=== PATIENT | male | born 1945 | race Caucasian/White ===

== ENCOUNTER 2016-12-04 11:24 | Emergency (ER) | payer MEDICARE ==
[2016-12-04] MEDS ORDERED: HYDROcodone/ACETAMIN 5-325 MG* 1 TAB PO ONE (11:37)
[2016-12-04] MEDS ORDERED: Cyclobenzaprine TAB* 10 MG PO ONE (11:37)
--- NOTE | 2016-12-04 12:27 | RAD ---
INDICATION: Low back pain. COMPARISON: Comparison is made with a prior MRI of the lumbar spine from May 02, 2016. TECHNIQUE: Contiguous axial sections were obtained beginning above the T11 vertebra and continuing through the L5-S1 disc space. Images were reconstructed in the sagittal and coronal planes. FINDINGS: The vertebra are in normal alignment. No fracture is seen. There are hypodense lesions present within the T12 and L1 vertebra which appear to correlate with hemangiomas on the prior MRI study. At the L1-L2 level there is a mild broad-based disc bulge. No significant spinal canal or neural foraminal narrowing is seen. At the L2-L3 level there is a moderate broad-based disc bulge and moderate to severe hypertrophic changes within the facet joints which gives rise to moderate to severe spinal canal narrowing and moderate bilateral neural foraminal narrowing. At the L3-L4 level there is a moderate broad-based disc bulge and severe hypertrophic changes within the facet joints which gives rise to severe spinal canal narrowing. There is moderate neural foraminal narrowing on the right side and severe neural foraminal narrowing on the left side. At the L4-L5 level there is a moderate broad-based disc bulge and severe hypertrophic changes within the facet joints which give rise to severe spinal canal narrowing. There is moderate to severe bilateral neural foraminal narrowing. The L5-S1 level there is a moderate broad-based disc bulge and severe hypertrophic changes within the facet joints. This causes lateral recess narrowing on both sides and moderate bilateral neural foraminal narrowing. IMPRESSION: MODERATE TO SEVERE DEGENERATIVE DISC DISEASE AND FACET OSTEOARTHRITIS DESCRIBED. IF THE PATIENT'S SYMPTOMS PERSIST RECOMMEND FOLLOW-UP MR IMAGING.
--- NOTE | 2016-12-04 12:41 | ED ---
Back Pain - HPI Summary HPI Summary: Patient presents to the ED with low back pain x 5 days which has progressively worsened and now with pain down to the right leg. He has had back problems in the past, but he states this is the worst it has been. Denies trauma or known injury. He is otherwise healthy. Last MRI 6 months ago which showed degenerative disc disease, but no acute findings. At that time, his back pain improved, but has now returned. He has tried to take old hydrocodone's and tylenol with codeine at home without relief of symptoms. Pain is worse with sitting and better with position, although only decreases from a 9/10 to a 8/ 10. Pain is located over the bilateral lower back with worsening symptoms on the right low back and radiating down the leg causing numbness and tingling. Denies bladder or bowel dysfunction. No history of herniations or fractures. He feels he is unable to ambulate well, and feels best with lying down and positioning. He has tried medications (above) and ice for comfort. On arrival to the ED, he is immediately requesting pain management. Physical exam is very limited d/t his pain. - History of Current Complaint Chief Complaint: EDBackInjuryPain Stated Complaint: RT FLANK AND LEG PAIN Time Seen by Provider: 12/04/16 11:35 Hx Obtained From: Patient Onset/Duration: Gradual Onset Onset/Duration: Started Days Ago Timing: Constant Back Pain Location: Is Discrete @ - lower back radiating to the right leg Severity Initially: Moderate Severity Currently: Moderate Pain Intensity: 8 Pain Scale Used: 0-10 Numeric Character: Aching Aggravating Symptom(s): Movement, Lifting, Bending, Walking Alleviating Symptom(s): Position Associated Signs And Symptoms: Positive: Pain with Weight Bearing - Risk Factors AAA Risk Factors: Negative TAD Risk Factors: Negative Cauda Equina Risk Factors: Lower Extemity Numbness Epidural Abscess Risk Factors: Lower Extemity Numbness - Allergies/Home Medications Allergies/Adverse Reactions: Allergies Allergy/AdvReac Type Severity Reaction Status Date / Time No Known Allergies Allergy Verified 04/07/16 09:36 PMH/Surg Hx/FS Hx/Imm Hx Previously Healthy: Yes Endocrine/Hematology History: Denies: Hx Diabetes Cardiovascular History: Denies: Hx Hypertension, Hx Pacemaker/ICD Respiratory History: Denies: Hx Asthma History: Denies: Hx Renal Disease Sensory History: Denies: Hx Hearing Aid Psychiatric History: Denies: Hx Panic Disorder - Cancer History Cancer Type, 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 - Surgical History Surgery Procedure, Year, and Place: AGE 17 RT KNEE CARTILAGE REPAIR; HERNIA ; VERICOSE VEINS, TONSILECTOMY - Immunization History Hx Pertussis Vaccination: No Immunizations Up to Date: Unable to Obtain/Confirm Infectious Disease History: No Infectious Disease History: Denies: Traveled Outside the [place] in Last 30 Days - Family History Known Family History: Positive: None - Social History Occupation: Employed Full-time Lives: With Family Alcohol Use: Daily Alcohol Amount: 2 glasses of wine daily Hx Substance Use: No Substance Use Type: Reports: None Hx Tobacco Use: No Smoking Status (MU): Never Smoked Tobacco Review of Systems Constitutional: Negative Eyes: Negative Cardiovascular: Negative Respiratory: Negative Gastrointestinal: Negative Positive: no symptoms reported, see HPI Positive: Arthralgia - low back pain, Myalgia Skin: Negative Neurological: Negative All Other Systems Reviewed And Are Negative: Yes Physical Exam Triage Information Reviewed: Yes Vital Signs On Initial Exam: Initial Vitals Temp Pulse Resp BP Pulse Ox 98.3 F 85 22 138/75 98 12/04/16 11:27 12/04/16 11:27 12/04/16 11:27 12/04/16 11:27 12/04/16 11:27 Completion Of Physical Exam Limited Due To: Dementia Appearance: Positive: Well-Appearing, Well-Nourished Skin: Positive: Warm, Skin Color Reflects Adequate Perfusion Head/Face: Positive: Normal Head/Face Inspection Eyes: Positive: EOMI, JOSE Neck: Positive: Supple, No Lymphadenopathy Respiratory/Lung Sounds: Positive: Clear to Auscultation, Breath Sounds Present Cardiovascular: Positive: Normal, RRR, Pulses are Symmetrical in both Upper and Lower Extremities Musculoskeletal: Positive: Pain @ - low back Neurological: Positive: Speech Normal Psychiatric: Positive: Normal - [place] Coma Scale Coma Scale Total: 14 Diagnostics - Vital Signs Vital Signs Temp Pulse Resp BP Pulse Ox 12/04/16 12:01 98.3 F 85 22 138/75 98 12/04/16 11:27 98.3 F 85 22 138/75 98 - Laboratory Lab Statement: Any lab studies that have been ordered have been reviewed, and results considered in the medical decision making process. Back Pain Course/Dx - Course Course Of Treatment: On arrival to the ED, he is immediately requesting pain management. Physical exam is very limited d/t his pain. He has tried to take old hydrocodone's and tylenol with codeine at home without relief of symptoms. Pain is worse with sitting and better with position, although only decreases from a 9/10 to a 8/10. Denies bladder or bowel dysfunction. No history of herniations or fractures. CT lumbar taken d/t patients pain and inability to walk. IMPRESSION: MODERATE TO SEVERE DEGENERATIVE DISC DISEASE AND FACET OSTEOARTHRITIS . DESCRIBED. IF THE PATIENT'S SYMPTOMS PERSIST RECOMMEND FOLLOW-UP MR IMAGING. Thorough physical exam was performed, focusing on thoracic and lumbar special tests and ROM. Due to patient pain around injury, physical exam was limited. Limited ROM. Flip Test positive. Straight leg raise positive. Kernig test positive. Negative Babinksi. Hip flexion and extension, knee extension, dorsiflexion, great toe extension and plantar flexion intact. Rotating at hips limited d/t pain. Nerve roots L4-S2 reflexes intact. L1-S2 nerve root sensory intact. No saddle anesthesia. Gait abnormal. Treatment options explained. Discussed the CT findings. Patient is requesting pain medications. Provider encouraged conservative measures including ibuprofen 600mg three times daily, moist heat, positioning, excercises and flexeril twice daily. He is again requesting pain medication, and states he has tylenol with codeine at home without effect. I have agree to give the patient oxycodone/acetaminophen 10mg only up to four times daily for breakthrough pain not well controlled with ibuprofen and flexeril. Medications were reveiwed with patient and how to take. He is to not take any medications for pain at home during this time. 3 days worth of pain medicaiton given and he agrees to follow up with Dr. Buchanan and Dr. Isabel next week if he needs further management of his pain. Discussed degenerative disc disease, herniations and piriformis syndrome to patient as possibilities for his acute increase in pain. - Diagnoses Differential Diagnosis/HQI/PQRI: Positive: Compressive Cord Syndrome, Herniated Disc, Strain, Sprain Provider Diagnoses: Lumbar radicular pain - Provider Notifications Instructed by Provider To: Have Pt Call For Appt. - Dr. Buchanan and Dr. Isabel Discharge - Discharge Plan Condition: Stable Disposition: HOME Prescriptions: Cyclobenzaprine TAB* [Flexeril TAB*] 10 mg PO BID PRN #10 tab MDD 2 PRN Reason: Pain oxyCODONE/Acetamin 10/325(NF) [Percocet 10/325 (NF)] 1 tab PO Q6H #12 tab MDD 4 Patient Education Materials: Lumbar Radiculopathy (ED), Piriformis Syndrome (ED ) Referrals: Jaden Isabel MD [Primary Care Provider] - Campbell Buchanan MD [Medical Doctor] - Additional Instructions: Dx.Low back pain with sciatica Oxycodone-Acetaminophen - This medication may make you drowsy and do not drive or operate machinery with this medication. Only take this medication for breakthrough pain which is not well controlled with over the counter ibuprofen or tylenol. Flexeril: This medication is a muscle relaxant and can help relieve muscle spasms, muscle strain, or pain sensations. Flexeril can cause side effects that may impair your thinking or reactions. Be careful if you drive or do anything that requires you to be awake and alert. Avoid drinking alcohol, which can increase some of the side effects of Flexeril. Ibuprofen 600mg three times daily with meals for discomfort. - take this medciation on opposite schedule of you pain medication DISCONTINUE YOUR USE OF ANY AT HOME PAIN MEDICATIONS WHILE TAKING THIS MEDICATION Return to ED if symptoms worsen or fail to improve, notice worsening swelling, warmth or redness around the joint, develop fever, or pain is uncontrolled with OTC medications. Moist heat to the area for comfort. Warm showers or baths may improve symptoms. It is important to remain mobile as tolerated to prevent stiffening of the joints and delay healing. Follow up with your PCP and/or orthopedic surgeon if your symptoms worsen. I have given you a referral.
[2016-12-04 13:08] VITALS: BP 128/74
== END 2016-12-04 13:06 | disposition home or self-care (01) ==
LOC: ED 11:24
DX: M51.36 Other intervertebral disc degeneration, lumbar region (principal); M54.5 Low back pain
CPT/HCPCS: 72131; 99282; A9270-GY

== ENCOUNTER 2017-04-08 09:39 | Inpatient (IN) | payer MEDICARE ==
[2017-04-08] MEDS ORDERED: NS 0.9% 1000 ML*IV.FLUID IV ONE (10:16)
[2017-04-08 10:57] LABS: ABS Basophils 0.1 10^3/ul (0-0.2); ABS Eosinophils 0.3 10^3/ul (0-0.6); ABS Lymphocytes 0.8 10^3/ul (1.0-4.8); ABS Neutrophils 10.5 10^3/ul (1.5-7.7); ABS Nucleated RBC 0.08 10^3/ul; Eosinophil % 2.2 % (0-6); Hematocrit 48 % (42-52); Hemoglobin 16.5 g/dl (14.0-18.0); Lymphocyte % 6.6 % (25-47); Mean Corpuscular HGB Conc 35 g/dl (31-36); Mean Corpuscular Hemoglobin 32 pg (27-31); Mean Corpuscular Volume 93 fL (80-94); Nucleated Red Blood Cells % 0.6; Red Blood Count 5.12 10^6/ul (4.0-5.4); Red Cell Distribution Width 14 % (10.5-15); White Blood Count 12.7 10^3/ul (3.5-10.8)
[2017-04-08 11:07] LABS: EGFR Non-African American 76.7 (>60)
--- NOTE | 2017-04-08 11:17 | RAD ---
Indication: Cough, fever. Immunosuppressed due to therapy for rheumatoid arthritis. Comparison: April 26, 2013 Technique: Upright AP 1041 hours Report: Suboptimal inspiration compared with the prior exam with resulting mild crowding of the pulmonary markings and perihilar and basilar subsegmental atelectasis. Probable small RIGHT pleural effusion. The heart, pulmonary vasculature, and mediastinal contours are unremarkable. IMPRESSION: 1. Low lung volumes with subsegmental atelectasis. No definitive evidence for pneumonia. 2. Probable small RIGHT pleural effusion.
[2017-04-08 11:27] LABS: INR 1.05 (0.77-1.02)
[2017-04-08 11:34] LABS: Platelet Count 316 10^3/ul (150-450)
[2017-04-08] MEDS ORDERED: cefTRIAXone(*) 1 GM in NS 0.9% 50 ML* 50 ML IVPB ONE (11:37)
[2017-04-08] MEDS ORDERED: Azithromycin IV(*) 500 MG in NS 0.9% 250 ML* 250 ML IVPB ONE (11:37)
--- NOTE | 2017-04-08 12:19 | ED ---
Mason Waite Angela, scribed for Malissa Colorado MD on 04/08/17 at 1019 . Complex/Multi-Sys Presentation - HPI Summary HPI Summary: This pt is a 71 y/o male, accompanied by his , presenting [place] [facility] [place]/o productive cough x6 days. Pt reports productive cough with yellow sputum. Pt notes he spent time with family and friends who were sick, and the next day woke up with a head cold. He states he has been taking Nyquil and Dayquil with no relief. Pt additionally notes decreased appetite, fever (yesterday of 101.5 F ), and wheezing. Pt reports chest pain only when coughing. Pt denies lower extremity pain, edema, abd pain, nausea, vomiting. Last night pt took ibuprofen and Nyquil. This morning pt has not taken anything. Per , for the last 2 days pt has taken 3 doses of Amoxicillin (875 mg), his last dose was yesterday morning. Pt does not use an inhaler at home. Pt reports he had a flu shot this year. PMHx includes rheumatoid arthritis, pneumonia. Pt is immunosuppressed, has RA and is currently on methotrexate. O2 Sat in the ED: 94 Of note, pt's allergies list amoxicillin and clavulanic acid but states it was only GI upset, and she states pt had no allergic reactions with the "leftover" amoxicillin that she gave to her . 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 Negative : Edema, Nausea, Vomiting, Abdominal Pain - Allergies/Home Medications Allergies/Adverse Reactions: Allergies Allergy/AdvReac Type Severity Reaction Status Date / Time Amoxicillin [From Augmentin] AdvReac GI Upset Verified 01/12/17 14:19 Clavulanic Acid AdvReac GI Upset Verified 01/12/17 14:19 [From Augmentin] Donepezil [From Aricept] AdvReac GI Upset Verified 01/12/17 14:19 Gabapentin AdvReac GI Upset Verified 01/12/17 14:19 Home Medications: Home Medications Aspirin EC Low Dose* [Ecotrin EC Low Dose 81 MG*] 81 mg PO DAILY 04/08/17 [ History Confirmed 04/08/17] Folic Acid TAB* [Folvite TAB*] 1 mg PO DAILY 04/08/17 [History Confirmed ] Galantamine ER (NF) 16 mg PO DAILY 04/08/17 [History Confirmed 04/08/17] Methotrexate TAB* 10 mg PO .EVERYSUNDAY 04/08/17 [History Confirmed 04/08/17] Multivitamins/Minerals TAB* [Theragran/minerals TAB*] 1 tab PO DAILY 04/08/17 [ History Confirmed 04/08/17] PMH/Surg Hx/FS Hx/Imm Hx Previously Healthy: No - RA Endocrine/Hematology History: Denies: Hx Diabetes Cardiovascular History: Denies: Hx Hypertension, Hx Pacemaker/ICD Respiratory History: Denies: Hx Asthma GI History: Reports: Other GI Disorders - hernia repair History: Reports: Hx Benign Prostatic Hyperplasia Denies: Hx Renal Disease Musculoskeletal History: Reports: Hx Rheumatoid Arthritis Sensory History: Reports: Hx Contacts or Glasses, Other Sensory Impairments - dentures - partial Denies: Hx Hearing Aid Opthamlomology History: Reports: Hx Contacts or Glasses, Other Sensory Impairments - dentures - partial Neurological History: Reports: Hx Peripheral Neuropathy Psychiatric History: Reports: Hx Anxiety Denies: Hx Panic Disorder - Cancer History Cancer Type, 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 Father: Leukemia - Social History Lives: With Family Alcohol Use: Daily Alcohol Amount: 8-10 drinks per week Hx Substance Use: No Substance Use Type: Reports: None Hx Tobacco Use: No Smoking Status (MU): Never Smoked Tobacco Review of Systems Constitutional: Other - decreased appetite Positive: Fever - yesterday Positive: Chest Pain - only with coughing Respiratory: Other - wheezing Positive: Cough Negative: Abdominal Pain, Vomiting, Nausea Negative: Edema, Other - LE pain Neurological: Negative Psychological: Normal All Other Systems Reviewed And Are Negative: Yes Physical Exam - Summary Physical Exam Summary: Appearance: Ill-appearing, no pain distress, Well-nourished Skin: Warm, color reflects adequate perfusion Head: Normal Head/Face inspection Eyes: Conjunctiva clear ENT: Normal inspection Neck: Supple, no nodes, no JVD Respiratory: Coarse rhonchi throughout. Pt can't take a deep breath without coughing. Cardio: RRR, No murmur, pulses normal, brisk capillary refill Abdomen: soft, nontender Bowel sounds: present Musculoskeletal: Strength Intact/ ROM intact. No calf tenderness. No edema. Neuro: Alert, muscle tone normal, facial symmetry, speech normal, sensory/motor intact Psychological: Normal Triage Information Reviewed: Yes Vital Signs On Initial Exam: Initial Vitals Temp Pulse Resp BP Pulse Ox 97.0 F 95 20 109/81 98 04/08/17 09:43 04/08/17 09:43 04/08/17 09:43 04/08/17 09:43 04/08/17 09:43 Vital Signs Reviewed: Yes Diagnostics - Vital Signs Vital Signs Temp Pulse Resp BP Pulse Ox 04/08/17 09:43 97.0 F 95 20 109/81 98 - Laboratory Lab Results: Lab Results 04/08/17 04/08/17 04/08/17 Range/Units 10:35 10:35 10:35 WBC (3.5-10.8) 10^3/ul RBC (4.0-5.4) 10^6/ul Hgb (14.0-18.0) g/dl Hct (42-52) % MCV (80-94) fL MCH (27-31) pg MCHC (31-36) g/dl RDW (10.5-15) % Plt Count (150-450) 10^3/ul MPV Neut % (Auto) (38-83) % Lymph % (Auto) (25-47) % Hill % (Auto) (1-9) % Eos % (Auto) (0-6) % Baso % (Auto) (0-2) % Absolute Neuts (auto) (1.5-7.7) 10^3/ul Absolute Lymphs (auto) (1.0-4.8) 10^3/ul Absolute Monos (auto) (0-0.8) 10^3/ul Absolute Eos (auto) (0-0.6) 10^3/ul Absolute Basos (auto) (0-0.2) 10^3/ul Absolute Nucleated RBC 10^3/ul Nucleated RBC % ESR (0-40) mm/Hr INR (Anticoag Therapy) 1.05 H (0.77-1.02) APTT 30.2 (26.0-36.3) seconds Sodium 133 (133-145) mmol/L Potassium 3.9 (3.5-5.0) mmol/L Chloride 97 L (101-111) mmol/L Carbon Dioxide 30 (22-32) mmol/L Anion Gap 6 (2-11) mmol/L BUN 22 (6-24) mg/dL Creatinine 0.97 (0.67-1.17) mg/dL Est GFR ( Amer) 98.7 (>60) Est GFR (Non-Af Amer) 76.7 (>60) BUN/Creatinine Ratio 22.7 H (8-20) Glucose 128 H (70-100) mg/dL Lactic Acid (0.5-2.0) mmol/L Calcium 9.2 (8.6-10.3) mg/dL Total Bilirubin 1.40 H (0.2-1.0) mg/dL AST 13 (13-39) U/L ALT 16 (7-52) U/L Alkaline Phosphatase 93 (34-104) U/L Total Creatine Kinase 25 (10-223) U/L Troponin I 0.01 (<0.04) ng/mL C-Reactive Protein 264.92 H (< 5.00) mg/L B-Natriuretic Peptide 67 ( - 100) pg/mL Total Protein 7.2 (6.4-8.9) g/dL Albumin 3.6 (3.2-5.2) g/dL Globulin 3.6 (2-4) g/dL Albumin/Globulin Ratio 1.0 (1-3) Influenza A (Rapid) (Negative) Influenza B (Rapid) (Negative) 04/08/17 04/08/17 04/08/17 Range/Units 10:35 10:35 11:03 WBC 12.7 H (3.5-10.8) 10^3/ul RBC 5.12 (4.0-5.4) 10^6/ul Hgb 16.5 (14.0-18.0) g/dl Hct 48 (42-52) % MCV 93 (80-94) fL MCH 32 H (27-31) pg MCHC 35 (31-36) g/dl RDW 14 (10.5-15) % Plt Count 316 (150-450) 10^3/ul MPV Not Reportable Neut % (Auto) 82.6 (38-83) % Lymph % (Auto) 6.6 L (25-47) % Hill % (Auto) 8.2 (1-9) % Eos % (Auto) 2.2 (0-6) % Baso % (Auto) 0.4 (0-2) % Absolute Neuts (auto) 10.5 H (1.5-7.7) 10^3/ul Absolute Lymphs (auto) 0.8 L (1.0-4.8) 10^3/ul Absolute Monos (auto) 1.0 H (0-0.8) 10^3/ul Absolute Eos (auto) 0.3 (0-0.6) 10^3/ul Absolute Basos (auto) 0.1 (0-0.2) 10^3/ul Absolute Nucleated RBC 0.08 10^3/ul Nucleated RBC % 0.6 ESR 65 H (0-40) mm/Hr INR (Anticoag Therapy) (0.77-1.02) APTT (26.0-36.3) seconds Sodium (133-145) mmol/L Potassium (3.5-5.0) mmol/L Chloride (101-111) mmol/L Carbon Dioxide (22-32) mmol/L Anion Gap (2-11) mmol/L BUN (6-24) mg/dL Creatinine (0.67-1.17) mg/dL Est GFR ( Amer) (>60) Est GFR (Non-Af Amer) (>60) BUN/Creatinine Ratio (8-20) Glucose (70-100) mg/dL Lactic Acid 1.1 (0.5-2.0) mmol/L Calcium (8.6-10.3) mg/dL Total Bilirubin (0.2-1.0) mg/dL AST (13-39) U/L ALT (7-52) U/L Alkaline Phosphatase (34-104) U/L Total Creatine Kinase (10-223) U/L Troponin I (<0.04) ng/mL C-Reactive Protein (< 5.00) mg/L B-Natriuretic Peptide ( - 100) pg/mL Total Protein (6.4-8.9) g/dL Albumin (3.2-5.2) g/dL Globulin (2-4) g/dL Albumin/Globulin Ratio (1-3) Influenza A (Rapid) Negative (Negative) Influenza B (Rapid) Negative (Negative) Result Diagrams: 04/09/17 06:11 04/09/17 06:11 Lab Statement: Any lab studies that have been ordered have been reviewed, and results considered in the medical decision making process. - Radiology Chest XR Xray Interpretation: Positive (See Comments) - IMPRESSION: 1. Low lung volumes with subsegmental atelectasis. No definitive evidence for pneumonia. 2. Probable small RIGHT pleural effusion. Dr. Colorado has reviewed this radiology report. Radiology Interpretation Completed By: Radiologist - EKG 10:20 Cardiac Rate: NL EKG Rhythm: Sinus Rhythm - at 89 bpm EKG Interpretation: Nl CORNELL conduction time, Nl QTc. Non-specific ST-T wave changes. EKG Comparison: Other - No prior EKG to compare. Re-Evaluation - Re-Evaluation Second Eval Re-Evaluation Time: 11:44 Change: Unchanged Comment: I advised the pt and of the admission plan and diagnosis. Complex Multi-Symp Course/Dx Course Of Treatment: Pt medications reviewed this visit. Allergies noted. Chest XR shows 1. Low lung volumes with subsegmental atelectasis. No definitive evidence for pneumonia. 2. Probable small RIGHT pleural effusion. Sepsis protocol initiated due to pt's immunocompromised state and symptoms of pneumonia and pleural effusion on xray. Started on ceftriaxone and azithromycin after blood cultures drawn in the ED, with sepsis fluids protocol. At 11:34 I discussed pt care with Dr. Calle, hospitalist, who will admit the pt. I reviewed the admission plan with the pt and . - Diagnoses Differential Diagnoses/HQI/PQRI: Metabolic Abnormality, Sepsis, Other - pneumonia Provider Diagnoses: Pleural effusion, CAP (community acquired pneumonia), Rheumatoid arthritis, Immunosuppressed status - Physician Notifications Discussed Care Of Patient With: Jeremy Calle Time Discussed With Above Provider: 11:34 Instructed by Provider To: Other - I discussed pt care with Dr. Calle, hospitalist, who will admit the pt. Discharge - Discharge Plan Condition: Stable Disposition: ADMITTED TO [facility] documentation as recorded by the Mason amin Angela accurately reflects the service I personally performed and the decisions made by , Malissa Colorado MD.
[2017-04-08 12:46] LABS: Urine Appearance Clear; Urine Blood Negative (Negative); Urine Color Yellow; Urine Ketones Negative (Negative); Urine Protein Negative (Negative); Urine Specific Gravity 1.021 (1.010-1.030); Urine Urobilinogen Positive (Negative)
[2017-04-08] MEDS ORDERED: Artificial Tears* 15 ML BTL BOTH EYES PRN (15:28)
[2017-04-08] MEDS: NS 0.9% 1000 ML* 1,000 ML IV SCH (15:50)
[2017-04-08] MEDS: guaiFENesin LIQ* 100 MG/5 ML UDC PO PRN ×2 (15:50→20:46)
[2017-04-08] MEDS: Acetaminophen TAB* 325 MG PO PRN (15:50)
[2017-04-08] MEDS: Heparin VIAL(*) 5000 UNITS/ML VIAL (FIVE THOUSAND) SUBCUT SCH ×2 (15:59→22:09)
--- NOTE | 2017-04-08 16:36 | HP ---
CC: Dr. Isabel * [facility] MEDICINE HISTORY AND PHYSICAL: DATE OF ADMISSION: 04/08/17 PRIMARY CARE PHYSICIAN: Dr. Isabel. ATTENDING PHYSICIAN: Grey Calle MD * (dictation provided by Collin Sotelo NP) CHIEF COMPLAINT: Cough and fever. HISTORY OF PRESENT ILLNESS: Mr. Nuñez is a 71-year-old male with a past medical history of rheumatoid arthritis, on methotrexate, who presents today to the hospital with concern for 6 days of cough with fever. Mr. Nuñez states that he was recently exposed to family who had cold. Shortly thereafter, he developed cough. He has had ongoing cough with sputum production over the past 6 days. He had a temperature high of 101.5 yesterday. Over the past 3 days, he started taking amoxicillin, which his had left over from some previous infection. He states that despite taking amoxicillin that he has had no improvement in his symptoms. He reports cough, chest tightness, fever. He has had no sinus tenderness. No ear pain. No sore throat. He has had no nausea, vomiting, diarrhea, abdominal pain. Because of his immunocompromise status with use of chronic methotrexate therapy, his brought him to the emergency room for evaluation. In the emergency room, Mr. Nuñez is afebrile. His labs show only a very mildly elevated white blood cell count of 12.7. His ESR is 65. His CRP is 264.92. His BUN and creatinine are normal. His urine shows no evidence of infection. Flu swab is negative. Chest x-ray shows concern for "low lung volume, subsegmental atelectasis and probable small right pleural effusion." Based on the concern for the small effusion and the patient's immunocompromise state, he was given ceftriaxone and azithromycin in the emergency room. PAST MEDICAL HISTORY: Rheumatoid arthritis. MEDICATIONS: 1. Galantamine 60 mg p.o. daily (no history of dementia, but the patient takes for memory loss). 2. Methotrexate 10 mg every Thursday. 3. Multivitamin with mineral 1 tab p.o. daily. 4. Folic acid daily. 5. D3 daily. 6. Aspirin 81 mg p.o. daily. ALLERGIES: 1. AMOXICILLIN and CLAVULANIC ACID (the patient did tolerate that medication over the past 3 days without any side effects). 2. DONEPEZIL. 3. GABAPENTIN. FAMILY HISTORY: Mother related to heart attack in her 70s and was a smoker. Father related to leukemia. SOCIAL HISTORY: No report of tobacco or drug use. The patient lives with his . She states that he drinks 1 to 2 glasses of wine per night. REVIEW OF SYSTEMS: A 14-point review of systems was completed with Mr. Nuñez and all those not mentioned above were negative. PHYSICAL EXAMINATION GENERAL: Mr. Nuñez is sitting up in the bed. He is in no acute distress with his at the bedside. VITAL SIGNS: Temperature 97.0, pulse 87, respiratory rate 20, O2 saturation 95 % on room air, blood pressure 139/65. LUNGS: Clear to auscultation bilaterally with no accessory muscle use and good aeration. HEART: S1, S2. No murmur, rub, or gallop, and regular. ABDOMEN: Soft, nontender with bowel sounds positive x4. EXTREMITIES: No cyanosis. No edema. NEURO: He is alert, he is oriented x3. He moves all extremities equally. There is no facial asymmetry or focal weakness. Extraocular movements are intact. SKIN: Intact. LABORATORY DATA/DIAGNOSTIC STUDIES: WBC 12.7, hemoglobin 16.5, hematocrit 48, platelet count 316,000. ESR 65. INR 1.05. Sodium 133, potassium 3.9, chloride 97, serum bicarbonate 30, BUN 22, creatinine 0.97, glucose 128. Lactic acid 1.1. CRP 264.92. Urine shows no evidence of infection. Flu swab is negative. Chest x-ray is as read per above with a small right pleural effusion. EKG shows sinus rhythm with a heart rate of 90 and no evidence of ischemia. ASSESSMENT AND PLAN: Mr. Nuñez is a 71-year-old male with past medical history of rheumatoid arthritis, on methotrexate therapy, who presents today to the hospital with report of 6-day history of cough with fever and with no improvement on amoxicillin outpatient. Our plans are for observation in the hospital for the followin. Bronchitis: I suspect that the patient most likely has a viral bronchitis; however, I am concerned because of his immunocompromised state and the presence of a small right pleural effusion that he could be developing early pneumonia. He has been started on ceftriaxone already in the emergency department and I will continue that for now. The patient will also have medications to manage symptoms including cough suppressants and expectorants and acetaminophen. The patient will have gentle IV fluids overnight. He does not meet sepsis criteria. 2. Rheumatoid arthritis. Continue methotrexate at discharge. 3. Code status is full code. 4. Disposition to the medical floor. TIME SPENT: Approximately 60 minutes were spent on the admission of this patient, more than half the time spent with the patient at the bedside reviewing the events leading up to this hospitalization, performing the physical examination, and reviewing the plan of care. COLLIN SOTELO NP [id number]/[facility] #: [id number] МАРИЯ
[2017-04-08] MEDS ORDERED: Ibuprofen TAB* 600 MG PO ONE (17:18)
[2017-04-08] MEDS: Benzonatate CAP* 100 MG PO PRN (20:46)
[2017-04-09] MEDS: Acetaminophen TAB* 325 MG PO PRN (02:17)
[2017-04-09] MEDS: NS 0.9% 1000 ML* 1,000 ML IV SCH ×2 (05:28→20:42)
[2017-04-09] MEDS: guaiFENesin LIQ* 100 MG/5 ML UDC PO PRN ×5 (05:48→22:09)
[2017-04-09] MEDS: Heparin VIAL(*) 5000 UNITS/ML VIAL (FIVE THOUSAND) SUBCUT SCH ×3 (05:50→22:09)
[2017-04-09 06:20] LABS: ABS Basophils 0.1 10^3/ul (0-0.2); ABS Eosinophils 0.4 10^3/ul (0-0.6); ABS Lymphocytes 1.6 10^3/ul (1.0-4.8); ABS Monocytes 0.8 10^3/ul (0-0.8); ABS Neutrophils 8.1 10^3/ul (1.5-7.7); ABS Nucleated RBC 0 10^3/ul; Eosinophil % 3.7 % (0-6); Hematocrit 40 % (42-52); Hemoglobin 13.6 g/dl (14.0-18.0); Lymphocyte % 14.5 % (25-47); Mean Corpuscular HGB Conc 34 g/dl (31-36); Mean Corpuscular Hemoglobin 32 pg (27-31); Mean Corpuscular Volume 93 fL (80-94); Mean Platelet Volume 8 um3 (7.4-10.4); Nucleated Red Blood Cells % 0; Platelet Count 196 10^3/ul (150-450); Red Blood Count 4.27 10^6/ul (4.0-5.4); Red Cell Distribution Width 14 % (10.5-15); White Blood Count 11.1 10^3/ul (3.5-10.8)
[2017-04-09 06:36] LABS: EGFR Non-African American 85.9 (>60)
[2017-04-09] MEDS: Benzonatate CAP* 100 MG PO PRN (09:23)
[2017-04-09] MEDS: Azithromycin TAB* 250 MG PO SCH (09:23)
[2017-04-09] MEDS: Multivitamins/Minerals TAB PO SCH (09:23)
[2017-04-09] MEDS: Polymyx/Trimethoprim OPTH* 10 ML BTL BOTH EYES SCH ×4 (09:25→20:40)
[2017-04-09] MEDS: cefTRIAXone(*) 1 GM in NS 0.9% 50 ML* 50 ML IVPB SCH (12:10)
[2017-04-09] MEDS ORDERED: Phenol 1.4% Spray* 177 ML BTL MT PRN (15:50)
[2017-04-09] MEDS ORDERED: Benzocaine/Menthol LOZ* 1 LOZENGE MT PRN (15:50)
--- NOTE | 2017-04-09 19:06 | PN ---
Subjective Date of Service: 04/09/17 Interval History: Patient feels the same as yesterday, has persistent productive cough which causes significant discomfort and sore throat. Also has eye discomfort and has been having his eyelashes caked shut repeatedly before hospitalization. No changes in vision. Patient has continued SOB. Patient complains of continued subjective fevers. Patient denies CP, N/V, Abdominal pain, dysuria, dizziness, GALICIA, or other pain. Family History: Unchanged from Admission Social History: Unchanged from Admission Past Medical History: Unchanged from Admission Objective Active Medications: Acetaminophen (Tylenol Tab*) 650 mg PO Q6H PRN PRN Reason: PAIN Last Admin: 04/09/17 02:17 Dose: 650 mg Azithromycin (Zithromax Tab*) 250 mg PO DAILY [facility] Last Admin: 04/09/17 09:23 Dose: 250 mg Benzonatate (Tessalon Cap*) 100 mg PO BID PRN PRN Reason: COUGH Last Admin: 04/09/17 09:23 Dose: 100 mg Guaifenesin (Robitussin*) 5 ml PO Q4H PRN PRN Reason: COUGH Last Admin: 04/09/17 16:38 Dose: 5 ml Heparin Sodium (Porcine) (Heparin Vial(*)) 5,000 units SUBCUT Q8HR [facility] Last Admin: 04/09/17 15:04 Dose: 5,000 units Sodium Chloride (Ns 0.9% 1000 Ml*) 1,000 mls @ 75 mls/hr IV PER RATE [facility] Last Admin: 04/09/17 05:28 Dose: 75 mls/hr Ceftriaxone Sodium 1 gm/ (Sodium Chloride) 50 mls @ 200 mls/hr IVPB Q24H [facility] Last Admin: 04/09/17 12:10 Dose: 200 mls/hr Multivitamins/Minerals (Theragran/Minerals Tab*) 1 tab PO DAILY [facility] Last Admin: 04/09/17 09:23 Dose: 1 tab Phenol/Menthol (Chloroseptic Throat Cavendish*) 1 spray MT TID PRN PRN Reason: SORE THROAT Polymyxin/Trimethoprim Sulfate (Polytrim Ophth*) 1 drop BOTH EYES QID [facility] Last Admin: 04/09/17 16:40 Dose: Not Given Polyvinyl Alcohol (Polyvinyl Alcohol 1.4% Opth*) 1 drop BOTH EYES Q2H PRN PRN Reason: DRY EYE Last Admin: 12/27/17 20:47 Dose: 1 drop Throat Lozenges (Chloraseptic Maxime*) 1 maxime MT Q6H PRN PRN Reason: SORE THROAT Last Admin: 04/09/17 16:38 Dose: 1 maxime Vital Signs - 8 hr 04/09/17 04/09/17 11:32 15:07 Temperature 98.5 F 99.3 F Pulse Rate 88 92 Respiratory 18 22 Rate Blood Pressure 130/55 146/61 (mmHg) O2 Sat by Pulse 96 96 Oximetry Oxygen Devices in Use Now: None Appearance: Patient is a 71yo male who appears stated age and is sitting in the bed in [facility]. Eyes: No Scleral Icterus, PERRLA, - - Significant conjunctical injection with radial orientation. Ears/Nose/Mouth/Throat: NL Teeth, Lips, Gums, Mucous Membranes Moist, - - Pharyngeal erythema Neck: NL Appearance and Movements; NL JVP, Trachea Midline Respiratory: Symmetrical Chest Expansion and Respiratory Effort, - - Rhonchi in left lung base. Cardiovascular: NL Sounds; No Murmurs; No JVD, RRR, No Edema Abdominal: NL Sounds; No Tenderness; No Distention, No Hepatosplenomegaly Lymphatic: No Cervical Adenopathy Extremities: No Edema, No Clubbing, Cyanosis Skin: No Rash or Ulcers, No Nodules or Sclerosis Neurological: Alert and Oriented x 3, NL Sensation, NL Muscle Strength and Tone Result Diagrams: 04/09/17 06:11 04/09/17 06:11 Additional Lab and Data: Lab Results Microbiology and Other Data: Microbiology Assess/Plan/Problems-Billing Assessment: Patient is a 71yo male with a PMH significant for RA on Methotrexate who presents with SOB and productive cough. Patient is admitted for antibiotics for CAP. - Patient Problems (1) CAP (community acquired pneumonia) Current Visit: Yes Status: Acute Code(s): J18.9 - PNEUMONIA, UNSPECIFIED ORGANISM SNOMED Code(s): 444494862 Comment: Admitted with CAP for productive sputum, cough, SOB, F/C. Patient on RA but continues to have significant cough. Gram stain shows 2+ Gram positive Cocci, 2 + Gram Positive Diplococci, 1+ Gram Negative Rods and 1+ Gram Postive Bacilli. Procalcitonin .4, likely bacterial pneumonia. Continue Ceftriaxone, Azithromycin. Continue antitussives and pain control for throat. (2) Rheumatoid arthritis Current Visit: Yes Status: Acute Code(s): M06.9 - RHEUMATOID ARTHRITIS, UNSPECIFIED SNOMED Code(s): 48731634 Comment: Patient's symptoms are quiescent at this time on Methotrexate. Immunocompromised from treatment which may modulate immune response to PNA, will be more aggressive with treatment. (3) Conjunctivitis Current Visit: Yes Status: Acute Code(s): H10.9 - UNSPECIFIED CONJUNCTIVITIS SNOMED Code(s): 4743969 Comment: Bilateral conjuntivitis. Started on Trimethoprim/Polymixin B eye drops and artificial tears. Symptoms more consistent with bacterial conjunctivitis despite bilaterality. (4) Memory loss Current Visit: Yes Status: Acute Comment: Not evident on exam, hold galantamine due to non-formulary status. Will resume at discharge or when patient brings from home. (5) DVT prophylaxis Current Visit: Yes Status: Acute Code(s): ZHS6864 - SNOMED Code(s): 883804193 Comment: Heparin SubQ (6) Full code status Current Visit: Yes Status: Acute Code(s): Z78.9 - OTHER SPECIFIED HEALTH STATUS SNOMED Code(s): 622863887 Status and Disposition: Patient is admitted inpatient, anticipate discharge tomorrow.
[2017-04-10] MEDS: Heparin VIAL(*) 5000 UNITS/ML VIAL (FIVE THOUSAND) SUBCUT SCH (05:41)
[2017-04-10 06:51] LABS: ABS Basophils 0.4 10^3/ul (0-0.2); ABS Eosinophils 0.3 10^3/ul (0-0.6); ABS Lymphocytes 1.8 10^3/ul (1.0-4.8); ABS Monocytes 0.8 10^3/ul (0-0.8); ABS Neutrophils 6.6 10^3/ul (1.5-7.7); ABS Nucleated RBC 0 10^3/ul; Eosinophil % 3.1 % (0-6); Hematocrit 38 % (42-52); Hemoglobin 13.1 g/dl (14.0-18.0); Lymphocyte % 18.2 % (25-47); Mean Corpuscular HGB Conc 34 g/dl (31-36); Mean Corpuscular Hemoglobin 32 pg (27-31); Mean Corpuscular Volume 93 fL (80-94); Mean Platelet Volume 8 um3 (7.4-10.4); Nucleated Red Blood Cells % 0; Platelet Count 236 10^3/ul (150-450); Red Blood Count 4.12 10^6/ul (4.0-5.4); Red Cell Distribution Width 13 % (10.5-15); White Blood Count 9.9 10^3/ul (3.5-10.8)
[2017-04-10] MEDS ORDERED: Carbamide Peroxide 6.5% OTIC* 15 ML BTL BOTH EARS ONE (09:13)
[2017-04-10] MEDS: Polymyx/Trimethoprim OPTH* 10 ML BTL BOTH EYES SCH (09:17)
[2017-04-10] MEDS: Azithromycin TAB* 250 MG PO SCH (09:17)
[2017-04-10] MEDS: Multivitamins/Minerals TAB PO SCH (09:17)
[2017-04-10 10:42] VITALS: BP 147/71
[2017-04-10] MEDS: cefTRIAXone(*) 1 GM in NS 0.9% 50 ML* 50 ML IVPB SCH (11:39)
--- NOTE | 2017-04-11 12:57 | DS ---
AMENDED REPORT NOW INCLUDES COSIGNER DESIGNATION - ESIGNED BEFORE ADJUSTMENTS CC: Jaden Isabel MD * DISCHARGE SUMMARY: DATE OF ADMISSION: 04/08/17 DATE OF DISCHARGE: 04/10/17 PRIMARY CARE PROVIDER: Jaden Isabel MD MY ATTENDING WHILE IN THE HOSPITAL: Adriane Flores DO * (DICTATED BY MIKE DOLL) PRIMARY DISCHARGE DIAGNOSES: 1. Community acquired pneumonia. 2. Bilateral bacterial conjunctivitis. SECONDARY DISCHARGE DIAGNOSIS: Rheumatoid arthritis, on methotrexate. STUDIES DONE WHILE IN THE HOSPITAL: Chest x-ray from 04/08/17, shows low lung volumes with subsequent atelectasis. No evidence for pneumonia. Probable small right pleural effusion. Electrocardiogram from 04/08/17 read as normal sinus rhythm, right bundle- branch block pattern, anomalous pacer spikes of unknown origin. No ST segment changes. No other abnormalities. EKG from 04/09/17, shows no significant changes except for an absence of the pacer spikes. MEDICATIONS AT DISCHARGE: 1. Multivitamin 1 tab p.o. daily. 2. Methotrexate 10 mg p.o. every Thursday. 3. Galantamine 60 mg p.o. daily. 4. Aspirin 81 mg p.o. daily. 5. Folic acid 1 mg p.o. daily. 6. Tylenol 650 mg p.o. q.6 hours. 7. Azithromycin 250 mg p.o. x3. 8. Benzonatate 100 mg p.o. b.i.d. as needed. 9. Carboxymethylcellulose 1 drop both eyes q.2 hours as needed. 10. Cefuroxime 500 mg p.o. b.i.d. x14. 11. Polytrim ophthalmic drops 1 drop both eyes 4 times a day. 12. Menthol Chloraseptic spray. 13. Guaifenesin 1200 mg p.o. b.i.d. x28. HOSPITAL COURSE: This is a brief summary of the patient's presentation. For more details, please see the history and physical from Chelsea Sotelo NP, from . In brief, the patient is a 71-year-old male with past medical history significant for the above, who came into the hospital for 6 days of cough and fever. The patient was exposed to some of the family who had a upper respiratory infection. Patient had a temperature up to 101.5. The patient had treatment failure on amoxicillin. The patient had no other symptoms. The patient's CRP was 264.92. ESR 65. White blood cell count 12.1 and a subsequent atelectasis with probable small right pleural effusion on chest x- ray. The patient was admitted and given ceftriaxone and azithromycin for presumed community acquired pneumonia. The patient did not improve greatly overnight from 04/08/17 to 04/09/17. The patient had procalcitonin drawn, which was 0.4 which indicates likely bacterial pneumonia. The patient's antibiotics were continued. The patient complained a second day of ongoing bilateral eye pain and itchiness. The patient was examined and conjunctival injection bilaterally in an axial pattern indicating bilateral conjunctivitis. The patient states that he had several days where his eyes were glued closed when he woke up. The patient was started on Polytrim drops as well as Artificial Tears. The patient had no other abnormalities. The patient's white blood cell count decreased to 11.1 on the second day of his hospitalization. The patient had elevated glucose and no other pertinent lab abnormalities. Next day, the patient's white blood cell count decreased to 9.9. The patient began to have no abnormalities. The patient felt much better today with decreased pain and itching in his eyes, decreased cough. No shortness of breath. The patient complained of right ear pain, was found to have cerumen impaction and had cerumen disimpaction with Debrox and warm water flush. The patient then stated that he was ready to go home. The patient was discharged to home. PHYSICAL EXAM: General: The patient is a 71-year-old male who appears stated age and sitting comfortably in the bed, in no acute distress. Vital Signs: At time of discharge, temperature 99.0, pulse rate 79, respiratory rate 18, oxygen saturation 94% on room air, blood pressure 147/71. HEENT: Head: Normocephalic , atraumatic. Sclerae shows significant conjunctival injection in an axial pattern. Ears: The patient has bilateral cerumen impaction making the tympanic membranes nonvisible. There is no pain with manipulation of either ear. No tenderness along the tragus. Nasal mucosa moist. Oral mucosa moist. Pharyngeal erythema without postnasal drip or exudate. There is no preauricular lymphadenopathy. Neck: Supple, nontender. No lymphadenopathy. No carotid bruits auscultated. Cardiac: Regular rate and rhythm. No clicks, murmurs, gallops, or rubs. Pulses are 2+ in bilateral dorsalis pedis, posterior tibialis, and radial areas. Respiratory: Clear to auscultation bilaterally. No wheezes, rales, or rhonchi. Good air exchange bilaterally. Abdomen: Soft, nontender, nondistended. Bowel sounds are present and normoactive in all 4 quadrants. No mass. No abdominal bruits auscultated. Genitourinary: No suprapubic tenderness or CVA tenderness. Skin: Clean, dry, intact. No rash. Neuro: Cranial nerves II through XII grossly intact. Alert and oriented x3. No focal deficits. Psychiatric: Pleasant and cooperative. LABORATORY DATA: On day of discharge, white blood cell count 9.9, hemoglobin 13.1, hematocrit 38, platelets count 236,000. Sodium 139, potassium 3.7, chloride 106, carbon dioxide 27, anion gap 6, BUN 15, creatinine 0.71, glucose 107, lactic acid 1.9, calcium 8.4. DISCHARGE PLAN: The patient will be discharged to home on oral antibiotics as above. Ophthalmic antibiotics for presumed bacterial conjunctivitis. The patient is to follow up with his primary care provider in 1 week for general medical management. The patient should continue taking his methotrexate as prescribed as he is improving on antibiotics. The patient does not have the flu. The patient should engage in activity as tolerated and have a regular unrestricted diet. TIME SPENT: Approximately 60 minutes were spent on this discharge, 40 of which was spent [id number] with the patient obtaining history and physical and discussing treatment plan. MIKE DOLL [id number]/[facility] #: [id number] МАРИЯ
== END 2017-04-10 13:00 | disposition home or self-care (01) | DRG 194 ==
LOC: ED 09:39 → MED 13:12 → OBSVTOIN 04-09 19:11
PROVIDERS: ADMIT Internal Medicine; ATTEND Internal Medicine
DX: J18.9 Pneumonia, unspecified organism (principal); J98.11 Atelectasis; J90 Pleural effusion, not elsewhere classified; G62.9 Polyneuropathy, unspecified; F41.9 Anxiety disorder, unspecified; H10.89 Other conjunctivitis; M06.9 Rheumatoid arthritis, unspecified; N40.0 Benign prostatic hyperplasia without lower urinary tract symptoms; R41.3 Other amnesia; J40 Bronchitis, not specified as acute or chronic; H61.21 Impacted cerumen, right ear; I45.10 Unspecified right bundle-branch block; R73.9 Hyperglycemia, unspecified; H92.01 Otalgia, right ear; D72.819 Decreased white blood cell count, unspecified; Z85.828 Personal history of other malignant neoplasm of skin; Z83.6 Family history of other diseases of the respiratory system; Z80.6 Family history of leukemia; Z88.8 Allergy status to other drugs, medicaments and biological substances; Z88.0 Allergy status to penicillin; Z82.49 Family history of ischemic heart disease and other diseases of the circulatory system; Z79.82 Long term (current) use of aspirin; Z72.89 Other problems related to lifestyle
CPT/HCPCS: 36415; 71010; 80048; 80053; 81003; 82550; 83605; 83735; 83880; 84145; 84484; 85025; 85610; 85652; 85730; 86140; 87040; 87070; 87205; 87502; 93005; A9270-GY; G0378; J0456; J0696; J1644

== ENCOUNTER 2017-07-21 06:19 | Inpatient (IN) | payer MEDICARE ==
[~2017-07-21 06:19] MED LIST: Buffered Lidocaine 0.9% SYRIN* 5 ML/SYR SYRINGE INTRADERM ONE; Famotidine TAB* 20 MG PO ONE; Metoclopramide TAB* 10 MG PO ONE
[2017-07-21] MEDS ORDERED: Buffered Lidocaine 0.9% SYRIN* 5 ML/SYR SYRINGE ONE (06:52)
[2017-07-21] MEDS ORDERED: Metoclopramide TAB* 10 MG ONE (06:52)
[2017-07-21] MEDS ORDERED: ceFAZolin 2 GM PREMIX (*) 2 GM/50 ML BAG IVPB ONE (06:52)
[2017-07-21] MEDS ORDERED: Famotidine TAB* 20 MG ONE (06:52)
[2017-07-21] MEDS ORDERED: Midazolam* 1 MG/ML 5 ML VIAL (5 MG) ONE (07:08)
[2017-07-21] MEDS ORDERED: Dexamethasone IV* 4 MG/ML 1 ML (4 MG) ONE (07:08)
[2017-07-21] MEDS ORDERED: Artificial Tear OPHTH.OINT* 3.5 GM ONE (07:08)
[2017-07-21] MEDS ORDERED: Cisatracurium* 2 MG/ML MDV 5 ML ONE (07:08)
[2017-07-21] MEDS ORDERED: Propofol* 10 MG/ML 20 ML BTL IV PUSH ONE (07:08)
[2017-07-21] MEDS ORDERED: Lidocaine 2% PF * 5 ML VIAL ONE (07:08)
[2017-07-21] MEDS ORDERED: fentaNYL* 50 MCG/ML 2 ML VIAL (100 MCG VIAL) ONE (07:08)
[2017-07-21] MEDS ORDERED: Ondansetron INJ* 2 MG/ML VIAL ONE (07:08)
[2017-07-21] MEDS ORDERED: Lidocain 1% EPI 1:100,000 * 30 ML MDV ONE (07:22)
[2017-07-21] MEDS ORDERED: Bacitracin IV* 50,000 UNITS INJ ONE (07:23)
[2017-07-21] MEDS ORDERED: Thrombin 5,000 UNITS* 1 APPLIC KIT - topical use - TOPICAL ONE (07:23)
[2017-07-21] MEDS ORDERED: fentaNYL* 50 MCG/ML 2 ML VIAL (100 MCG VIAL) IV PRN (08:24)
[2017-07-21] MEDS ORDERED: Ondansetron INJ* 2 MG/ML VIAL IV PRN ×2 (08:24→09:35)
[2017-07-21] MEDS ORDERED: DiMENhydriNATE IV* 50 MG/ML VIAL IV PUSH PRN (08:24)
[2017-07-21] MEDS ORDERED: Naloxone* 0.4 MG/ML 1 ML VIAL IV PRN (08:24)
[2017-07-21] MEDS ORDERED: Magnesium Hydroxide LIQ* 30 ML UDC PO PRN (09:35)
[2017-07-21] MEDS ORDERED: Acetaminophen TAB* 325 MG PO PRN (09:35)
[2017-07-21] MEDS ORDERED: Morphine VIAL* 4 MG/ML VIAL (1 ml vial) IV PRN (09:55)
[2017-07-21] MEDS: HYDROcodone/ACETAMIN 5-325 MG* 1 TAB PO PRN ×3 (11:14→20:27)
--- NOTE | 2017-07-21 11:35 | RAD ---
HISTORY: Decompressive lumbar laminectomy COMPARISONS: MRI dated June 24, 2014 VIEWS: 1 , portable lateral intraoperative view of the lumbar spine at 8:12 AM FINDINGS: A single portable lateral view of the lumbar spine at 8:30 AM demonstrates a metallic probe opposite of L3-L4 counting from L5 as the last lumbar type vertebral body. IMPRESSION: LIMITED PORTABLE VIEW OF THE SPINE FOR LOCALIZATION DURING SPINAL SURGERY
[2017-07-21] MEDS: GALANTAMINE 16 MG PO SCH (17:39)
[2017-07-22] MEDS: HYDROcodone/ACETAMIN 5-325 MG* 1 TAB PO PRN ×3 (06:35→18:25)
--- NOTE | 2017-07-22 07:55 | PN ---
Progress Note - Progress Note Date of Service: 07/22/17 SOAP: Subjective: [S/p decompressive lumbar laminectomy L2-3, L3-4 and L4-5, POD #1. Complains of mild low back incisional pain. Patient is ambulating nursing unit independently. Pain well controlled with PO meds. Numbness/tingling persistent in lower extremities. Denies headache, nausea, chest pain. ] Objective: [Vital Signs: Temp Pulse Resp BP Pulse Ox 97.8 F 70 18 119/59 98 07/22/17 04:03 07/22/17 04:03 07/22/17 06:35 07/22/17 04:03 07/22/17 04:03 General: Alert and oriented. Resting comfortably. Neuro: Motor and sensory intact. Extremities: Full ROM Incision: Intact and without swelling. Wound drain in place. Dressing clean and intact. Wound drain output 07/21/17 07/21/17 07/21/17 10:15 10:55 11:55 Output, DELGADO #1 60 70 60 07/21/17 07/21/17 07/21/17 12:41 13:47 15:53 Output, DELGADO #1 40 45 40 07/21/17 07/21/17 07/21/17 18:00 19:35 22:00 Output, DELGADO #1 40 35 38 07/22/17 07/22/17 07/22/17 01:58 06:02 06:36 Output, DELGADO #1 40 20 20 ] Assessment: [Patient is recovering well. Pain well controlled with PO meds. Wound drain requires further monitoring secondary to continued large volume output.] Plan: [1. Admit to inpatient. 2. Continue pain management. 3. Continue wound drain monitoring. 4. Encourage out of bed and ambulation. 5. PT evaluation]
[2017-07-22] MEDS: Docusate CAP* 100 MG PO PRN ×2 (08:57→18:25)
--- NOTE | 2017-07-22 09:32 | OP ---
DATE OF OPERATION: 07/21/17 - ROOM #338 DATE OF : 49 SURGEON: Campbell Buchanan MD HEALTH EDITOR: MIKE Myers. ANESTHESIA: General. PRE-OP DIAGNOSES: Lumbar spinal stenosis, L2-3, L3-4, L4-5. POST-OP DIAGNOSES: Lumbar spinal stenosis, L2-3, L3-4, L4-5. OPERATIVE PROCEDURE: Decompressive lumbar laminectomy, L2-3, L3-4, L4-5 with bilateral foraminotomies. DESCRIPTION OF PROCEDURE: After satisfactory general anesthesia was obtained, the patient was placed on the operating room table in a prone position with the chest supported on the Benson frame and the back slightly flexed. The lumbar region was then clipped, prepped, and draped in sterile manner for lumbar laminectomy and a skin incision outlined from L2 to L5. This incision was infiltrated with 1% Xylocaine with epinephrine after which turned down in sharply to the level of the lumbar fascia. The fascia was divided along the spinous processes from L2 to L5 and the paraspinal musculature stripped away from these posterior elements using the periosteal elevator and monopolar cautery. An intraoperative x-ray was taken verifying proper interspace localization after which decompression was carried out beginning at the L2-3 level. The spinous processes of L2, L3, L4 were removed with a combination of the Katherine rib shear and Leksell rongeurs. The remaining portion at the base of the spinous process of L2 and the inferior aspect of the lamina of L2 was thinned out with a Midas Ulices drill as was the medial aspect of the facet complex. There was noted to be a very vertically oriented canal with short pedicles and facet hypertrophy. The decompression was carried superiorly until the attachment of ligamentum flavum was taken down. Ligamentum flavum was then removed with the Kerrison. This was carried inferiorly until generous foraminotomies had been carried out over each L3 nerve root. Attention was then directed to the L3-4 level where a similar decompression was carried out. The pathology at this level was again a combination of bony and ligamentous hypertrophy. The decompression was carried out laterally and inferiorly until both L4 nerve roots were noted to be free in their course. A similar decompression was carried out at L4-5. The findings were less pronounced to this level than they had been at the other 2 levels. There was significant stenosis, however, and with the combination of the Midas Ulices drill and Kerrison rongeurs generous foraminotomies were carried out over each L5 nerve root. At the conclusion of the decompression, each of the levels were felt to be well decompressed. The wound was then thoroughly irrigated after which a drain was placed in the epidural space and tunneled out toward the left side. The fascia was then reapproximated with 0-Vicryl sutures, the subcutaneous tissues closed with 3-0 Vicryl suture, and the skin closed with skin clips. The estimated blood loss was 200 cc and the final sponge, padding, and needle counts were correct. The patient was taken to the recovery room extubated and in stable condition. [id number]/[facility] #: [id number] МАРИЯ
[2017-07-22] MEDS: GALANTAMINE 16 MG PO SCH ×2 (11:56→16:19)
[2017-07-22] MEDS: Magnesium Hydroxide LIQ* 30 ML UDC PO PRN (12:32)
[2017-07-23] MEDS: HYDROcodone/ACETAMIN 5-325 MG* 1 TAB PO PRN ×4 (00:24→23:48)
[2017-07-23] MEDS: Docusate CAP* 100 MG PO PRN ×2 (00:25→08:09)
[2017-07-23] MEDS: Magnesium Hydroxide LIQ* 30 ML UDC PO PRN ×2 (00:26→08:09)
[2017-07-23] MEDS ORDERED: Bisacodyl SUPP* 10 MG SUPP PR ONE (09:00)
[2017-07-23] MEDS: Hemorrhoidal OINT PR PRN ×2 (14:11→20:50)
--- NOTE | 2017-07-23 14:30 | PN ---
Progress Note - Progress Note Date of Service: 07/23/17 SOAP: Subjective: [S/p decompressive lumbar laminectomy L2-3, L3-4 and L4-5, POD #2. Patient complains of constipation. Last BM was day of surgery. He and his express concern over constipation related to narcotic medications. He has had 3 bowel medications (Colace, MOM and suppository) but states that he tried to go too quickly after the suppository and doesn't think it worked. Pain controlled with PO pain meds. Ambulating well around nursing unit. Denies pain in lower extremities; mild numbness persistent. No fever, chills, headache.] Objective: [ Vital Signs: Temp Pulse Resp BP Pulse Ox 97.9 F 74 18 112/59 96 07/23/17 07:36 07/23/17 07:36 07/23/17 10:05 07/23/17 07:36 07/23/17 08:48 General: Alert and without distress. Sitting up in bed. Neuro: Motor and sensory intact. Incision: Intact with say. No swelling, nontender. Wound drain in place and functioning well. Dressing replaced today. Extremities: Full ROM Wound drain output 07/21/17 07/21/17 07/21/17 10:15 10:55 11:55 Output, DELGADO #1 60 70 60 07/21/17 07/21/17 07/21/17 12:41 13:47 15:53 Output, DELGADO #1 40 45 40 07/21/17 07/21/17 07/21/17 18:00 19:35 22:00 Output, DELGADO #1 40 35 38 07/22/17 07/22/17 07/22/17 01:58 06:02 06:36 Output, DELGADO #1 40 20 20 07/22/17 07/22/17 07/22/17 09:55 12:03 14:08 Output, DELGADO #1 40 20 20 07/22/17 07/22/17 07/23/17 18:29 22:00 02:03 Output, DELGADO #1 40 10 20 07/23/17 06:18 Output, DELGADO #1 20 ] Assessment: [S/p lumbar decompression L2-3, L3-4 and L4-5, POD #2. Patient feeling well but constipated. Wound drain continues to collect large volume of fluid and is left in place. ] Plan: [1. Pt will remain admitted. 2. Encourage ambulation 3. Continue bowel medications. 4. Likely dc home tomorrow. ]
[2017-07-23] MEDS: GALANTAMINE 16 MG PO SCH (17:25)
[2017-07-24] MEDS: HYDROcodone/ACETAMIN 5-325 MG* 1 TAB PO PRN ×2 (06:18→10:17)
--- NOTE | 2017-07-24 07:44 | PN ---
Progress Note - Progress Note Date of Service: 07/24/17 SOAP: Subjective: []POD # 3 Doing well Had BM last night Drainage decreased Objective: []Drain removed Neuro intact Assessment: []Cont to make progress Plan: []D/C today D/C Instructions given
[2017-07-24] MEDS ORDERED: Bisacodyl SUPP* 10 MG SUPP PR PRN (09:00)
[2017-07-24 09:20] VITALS: BP 126/65
== END 2017-07-24 10:35 | disposition home or self-care (01) | DRG 517 ==
LOC: OR 06:19 → SSU 08:22 → OBSVTOIN 07-22 08:22
PROVIDERS: ADMIT Neurological Surgery; ATTEND Neurological Surgery
PROC: 01NB0ZZ Release Lumbar Nerve, Open Approach (ICD-10-PCS; principal; 2017-07-22)
DX: M48.062 Spinal stenosis, lumbar region with neurogenic claudication (principal); K21.9 Gastro-esophageal reflux disease without esophagitis; E78.5 Hyperlipidemia, unspecified; G89.29 Other chronic pain; F32.9 Major depressive disorder, single episode, unspecified; G62.9 Polyneuropathy, unspecified; R41.3 Other amnesia; H93.19 Tinnitus, unspecified ear; M06.9 Rheumatoid arthritis, unspecified; N40.0 Benign prostatic hyperplasia without lower urinary tract symptoms; K59.00 Constipation, unspecified; Z88.8 Allergy status to other drugs, medicaments and biological substances
CPT/HCPCS: 72100; A9270-GY; G0378; G8978-GP-CH; G8979-GP-CH; G8980-GP-CH; J0690; J1100; J2250; J2405; J2704; J3010